=== PATIENT | male | born 1985 | race Caucasian/White ===

== ENCOUNTER → 2024-06-06 | Outpatient (CLI) | payer SELFPAY | LOC: M OUTALCOH 07:33 | PROVIDERS: ATTEND Psychiatry & Neurology Psychiatry | DX: F10.10 Alcohol abuse, uncomplicated (principal) ==

== ENCOUNTER 2024-06-20 16:00 | Outpatient (RCR) | payer SELFPAY | END 2024-07-07 | LOC: M OUTALCOH 16:00 | PROVIDERS: ATTEND Psychiatry & Neurology Psychiatry | DX: Z03.89 Encounter for observation for other suspected diseases and conditions ruled out (principal) ==